=== PATIENT | male | born 1935 | race Caucasian/White ===

== ENCOUNTER → 2018-09-23 15:53 | Outpatient (CLI) | payer MEDICARE, OTHER, SELFPAY | PROVIDERS: Visit Provider Surgery | DX: Z01.818 Encounter for other preprocedural examination (principal) | CPT/HCPCS: 93005 ==

== ENCOUNTER 2018-09-24 12:47 | Day surgery (SDC) | payer MEDICARE, OTHER, SELFPAY ==
[2018-09-24 13:20] VITALS: BMI 25.1
--- NOTE | 2018-09-24 13:21 | PM.PREOP ---
Pre-operative Note Interval Note Pre-op Check: Yes History & Physical Reviewed by Physician and Yes Exam Performed Changes: No H&P completed within 30 days and has changed as indicated here:: Patient seen and examined in the preoperative area. Surgical site marked accordingly. His history physical examination dictated yesterday and placed on the chart has not changed. Proceed with hernia repair today as planned.
[2018-09-24 13:32] VITALS: BP 177/93; PULSE 69; RESP 12; TEMP 36.8; O2SAT 98
[2018-09-24] MEDS: LACTATED RINGERS 1,000 ML 42 ML IV ×2 (13:33→14:34)
[2018-09-24] MEDS: CEFAZOLIN 2 GM/100 ML FROZ.PIGGY IV (13:40)
--- NOTE | 2018-09-24 14:03 | SUR.OPER ---
Supine on padded OR bed, head on pillow, arms secured on padded arm boards at <90 degrees abduction, legs uncrossed, safety belt at thigh, tape over blanket over lower legs.
[2018-09-24] MEDS: BUPIVACAINE 0.5% (PF) VIAL 30 ML INJ (14:08)
[2018-09-24] MEDS: LIDOCAINE 1% W/EPI INJ 20 ML INJ (14:09)
[2018-09-24 15:05] VITALS: BP 147/74; PULSE 76; RESP 16; TEMP 36.1; O2SAT 96
[2018-09-24 15:10] VITALS: BP 142/68; PULSE 79; RESP 14; TEMP 36.4; O2SAT 94
[2018-09-24 15:15] VITALS: BP 127/64; PULSE 84; RESP 20; TEMP 36.6; O2SAT 96
[2018-09-24 15:20] VITALS: BP 130/64; PULSE 74; RESP 16; TEMP 36.6; O2SAT 95
--- NOTE | 2018-09-24 15:24 | PM.OP.1 ---
Operative Date/Time/Diagnoses Date of procedure: 09/24/18 Time of procedure: 15:25 Pre-op diagnosis: Symptomatic right inguinal hernia Post-op diagnosis: other (Symptomatic indirect right inguinal hernia) Procedure & Clinicians Procedure: Open right inguinal hernia repair with mesh Same procedure as scheduled: Yes Indications: 82-year-old male who presented with enlarging painful right inguinal mass. Examination and evaluation were consistent with hernia. Repair was recommended. Surgeon: Desmond Boggs Click Yes if Unassisted: Yes Anesthesia Type: General Operative Notes Findings: 1. Intact ilioinguinal nerve throughout and at the conclusion of the case 2. Bilateral descended testicles in normal position at the conclusion of the case 3. Moderate-sized indirect hernia right inguinal canal Closure Type: primary Specimen(s): none sent Implants & Drains: Medium size Pro Loop polypropylene mesh plug and patch in the right inguinal canal Applied: implant(s) (Mesh as above) Estimated Blood Loss (mL): 5 Blood products transfused: none Procedure in detail: After obtaining informed consent the patient was brought to the operating room placed supine on the table. After satisfactory induction of anesthesia the abdomen and genitalia were prepped in the usual sterile fashion. A SCOAP time-out was performed per standard protocol. Transverse incision was created in the lower aspect of the right inguinal region overlying the inguinal canal for a distance of approximately 4 cm after injecting a 1-1 mixture 1% lidocaine with 1 100,000 epinephrine and 0.5% plain Marcaine for postoperative analgesia. Skin incision was created with 10 scalpel blade followed by Bovie for hemostasis which was then carried through the subcutaneous tissue to the external oblique fascia. Fascia was divided in the direction of its fibers with a 15 scalpel blade followed by Metzenbaum scissors. Edges of the fascia were secured with hemostats. Blunt dissection revealed the ileal pubic tract, conjoined tendon, and rectus fascia. Spermatic cord and ilioinguinal nerve were encircled bluntly with the surgeon's fingers followed by a Newbern drain. Meticulous blunt dissection using DeBakey forceps was employed to skeletonize the spermatic cord structures and isolate the hernia sac. Hernia sac was reduced back into the internal inguinal canal. Mesh plug and patch was brought onto the operative field, soaked in saline, and the patch was placed in the internal inguinal ring. Patch was secured circumferentially with interrupted 2 0 Vicryl suture to adjacent structures. Onlay patch was brought onto the operative field and secured over the floor of the right inguinal canal using interrupted 0 Tycron sutures. Laterally the mesh was secured to the ileal pubic tract while anteriorly was secured to the conjoined tendon. Medially the mesh was secured to the rectus fascia. Tails of the mesh were brought around the spermatic cord and placed deep to the external oblique fascia were it was secured with a single interrupted 0 Tycron stitch. Great care was taken avoid strangulation of the cord and the defect in the mesh was noted to admit the tip of the surgeon's examining finger adjacent to the cord. Spermatic cord and ilioinguinal nerve were replaced in their usual anatomic position. Wound was irrigated with copious amounts of sterile saline solution and noted to be hemostatic. External oblique fascia was closed over the cord with a running 3 0 Vicryl suture. Subcutaneous tissue was reapproximated in an interrupted fashion with 3 0 Vicryl suture as well. Skin was closed with a running subcuticular 4 O Monocryl suture. Dermal adhesive was applied to the skin. Again, testicles were noted to be in normal descended position at the end of the case. Anesthesia was reversed and the patient extubated in the operating room. He was taken recovery in stable condition. Complications: none Condition: stable Disposition: PACU Plan for aftercare: 1. Discharge home 2. Follow up in surgery Clinic in 2 weeks
[2018-09-24 16:00] VITALS: BP 141/76; PULSE 70; RESP 24; TEMP 36.3; O2SAT 94
== END 2018-09-24 16:05 | disposition home or self-care (01) ==
PROVIDERS: Family Provider Physician Assistant; PCP Physician Assistant; Visit Provider Surgery
PROC: (CPT 49505; principal; 2018-09-24 14:15)
DX: K40.90 Unilateral inguinal hernia, without obstruction or gangrene, not specified as recurrent (principal); F17.210 Nicotine dependence, cigarettes, uncomplicated
CPT/HCPCS: 49505; C1781; J0690; J2405; J2704; J3010

== ENCOUNTER → 2020-09-22 10:10 | Outpatient (CLI) | payer MEDICARE, OTHER, SELFPAY ==
[2020-09-22 11:47] LABS: COVID19 -Nasal RAPID Negative (Negative)
== END ==
PROVIDERS: Family Provider Physician Assistant; PCP Physician Assistant; Visit Provider Surgery
DX: Z01.812 Encounter for preprocedural laboratory examination (principal); Z20.828 Contact with and (suspected) exposure to other viral communicable diseases
CPT/HCPCS: 87635; C9803

== ENCOUNTER 2020-09-23 13:56 | Day surgery (SDC) | payer MEDICARE, OTHER, SELFPAY ==
--- NOTE | 2020-09-23 | PATH_ITS ---
[facility] Accession Number: [id number] . 01 Material submitted: . rectum - RECTUM POLYP X2 . 02 Diagnosis: Rectum, Polyp x2, Biopsy: Tubular adenomas. MRV 09/27/2020 1451 Local . 02 Electronically signed: . Loire Thurman MD, Pathologist NPI- [id number] . 01 Gross description: . RECTUM POLYP X2: Received in formalin are 2 fragment(s) of mcguire, soft tissue measuring 0.5 x 0.3 x 0.5 cm to 0.4 x 0.3 x 0.3 cm which are inked, bisected and submitted entirely in 1 cassette(s) /Q 09/24/2020 0735 Local . 02 Pathologist provided ICD-10: D12.8 . 02 CPT . 839600 Performed at: 01 [facility] [address] [id number] MD Renny Downs MD Phone: [phone] [facility]formed at: [address] [facility] [address] [place], [place] [id number] MD Lorie Thurman MD Phone: [phone]
[2020-09-23 14:17] VITALS: BP 169/93; PULSE 73; RESP 18; TEMP 36.6; O2SAT 93; BMI 23.7
[2020-09-23] MEDS: LACTATED RINGERS 1,000 ML 200 ML IV (14:35)
--- NOTE | 2020-09-23 14:45 | PM.PREOP ---
Pre-operative Note COVID-19 COVID-19 status: Negative Interval Note History & Physical reviewed/Exam performed by Physician: Yes Changes to H&P: No
[2020-09-23] MEDS: MIDAZOLAM 5 MG/5 ML VIAL IV (15:46)
[2020-09-23] MEDS: fentaNYL 250 MCG/5 ML INJ IV (15:46)
[2020-09-23] MEDS: METOPROLOL TARTRATE 5 MG/5 ML INJ IV (16:01)
--- NOTE | 2020-09-23 16:11 | P.OP.ENDO_ITS ---
Operative Date/Time/Diagnoses Date of procedure: 09/23/20 Time of procedure: 16:11 Pre-op diagnosis: Screening colonoscopy Post-op diagnosis: other (Rectal polyps) Procedure & Clinicians Study performed: Colonoscopy Polypectomy Same procedure as scheduled: Yes Indications: 84-year-old man no prior colonoscopy presents for routine screening Surgeon: Jerald Mcadams Procedure Notes Procedure in detail: Medications: Conscious sedation using 4mg IV midazolam and 150mcg IV of fentanyl The history and physical was performed/updated and the patient is ASA class is 2. The procedure was discussed in detail with the patient. Potential risks co mplications including infection, bleeding, missed diagnosis, perforation, need for surgery, and were explained. Their questions were answered and informed consent was obtained. Patient was brought to the procedure room and placed standard monitoring equipment. The patient's vital signs were monitored continuously throughout the entire procedure. Prior to starting time-out was performed. The patient was placed in the left lateral recumbent position. Procedural sedation was administered. Examination began with a thorough inspection of the perianal area there was no evidence of fissures, fistulae, external hemorrhoids or cutaneous malignancy. The colonoscopy scope was then placed into the anal canal and was advanced to the cecum, which was identified by the ileocecal valve, the appendiceal orifice and the confluence of the taenia. The scope was then slowly withdrawn examining colon thoroughly in all directions, irrigating it of any residual stool. Two 5 mm polyps within the rectum removed with cold snare. currie diverticulosis The patient tolerated the procedure well. They will be discharged once criteria are met. The prep was of good/excellent quality. The withdrawl time was 7 minutes. The sedation time was 23 minutes. Specimen(s): other (rectal polyps x2) Impression: colonic polyps Post-procedure Recommendations: High fiber diet Disposition: same day surgery
[2020-09-23 16:17] VITALS: BP 159/92; PULSE 57; RESP 16; O2SAT 96
[2020-09-23 16:25] VITALS: BP 156/90; PULSE 67; RESP 13; O2SAT 96
== END 2020-09-23 16:30 | disposition home or self-care (01) ==
PROVIDERS: Family Provider Physician Assistant; PCP Physician Assistant; Referring Provider Surgery; Visit Provider Surgery
PROC: 0DJD8ZZ Inspection of Lower Intestinal Tract, Via Natural or Artificial Opening Endoscopic (ICD-10-PCS; CPT 45378; principal; 2020-09-23 15:15)
DX: K59.00 Constipation, unspecified (principal); K57.30 Diverticulosis of large intestine without perforation or abscess without bleeding; D12.8 Benign neoplasm of rectum
CPT/HCPCS: 45385; 99152; J2250; J3010

== ENCOUNTER → 2021-01-03 13:06 | Outpatient (CLI) | payer MEDICARE, OTHER, SELFPAY ==
--- NOTE | 2021-01-03 | DI.MRI.S_ITS ---
PROCEDURE: MR ANKLE LT WO CON INDICATIONS: Other specified disorders of synovium and tendon, TECHNIQUE: Noncontrast sagittal T1 spin echo and T2 fast spin echo with fat saturation, axial proton density fast spin echo and T2 fast spin echo with fat saturation, coronal T1 spin echo and T2 fast spin echo with fat saturation through the ankle/hindfoot. COMPARISON: None. FINDINGS: Bones and joints: No bone marrow contusions or fractures. Plantar and posterior calcaneal spurring. No hindfoot coalitions. No osteochondral injuries of the talar dome. No pathologic joint effusions. Medial structures: Posterior tibialis intact. Flexor digitorum longus intact. There is posterior tibialis and flexor digitorum longus tenosynovitis. Flexor hallucis longus tendon intact. The posterior tibial neurovascular bundle appears normal within the tarsal tunnel, without extrinsic mass effect. Deltoid ligament complex a the ppears intact. The spring ligament appears intact. Lateral structures: Anterior talofibular ligament is not well seen possibly ruptured although this could be chronic finding. Calcaneofibular ligament intact. Posterior talofibular ligament intact. Anterior and posterior tibiofibular ligaments appear intact, as is the intermalleolar ligament. Tibiofibular syndesmosis is normal in width at 2 mm or less. Peroneus longus and brevis tendons appear normal. Bony peroneal tubercle and retrotrochlear prominence are normal in size. Sinus tarsi demonstrates normal fatty signal, without edema, fibrosis, or cyst formation. Anterior structures: Tibialis anterior intact. Extensor hallucis longus intact. Extensor digitorum longus tendon intact. Dorsal talonavicular ligament appears intact. Posterior and plantar structures: Achilles tendon is intact. Thickening and intrasubstance signal change involving the medial band of the plantar fascia. No abductor digiti quinti muscle atrophy to suggest Vasquez neuropathy. IMPRESSION: Prominent plantar and posterior calcaneal spurring. Medial band plantar fasciitis. 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 on 01/03/2021 at 15:16 Approved by: Tl Segura M.D. on 01/03/2021 at 15:25
== END ==
PROVIDERS: Family Provider Physician Assistant; PCP Physician Assistant; Referring Provider Orthopaedic Surgery Foot and Ankle Surgery; Visit Provider Orthopaedic Surgery Foot and Ankle Surgery
DX: M67.88 Other specified disorders of synovium and tendon, other site (principal); S93.492A Sprain of other ligament of left ankle, initial encounter; M77.32 Calcaneal spur, left foot; M72.2 Plantar fascial fibromatosis
CPT/HCPCS: 73721